=== PATIENT | female | born 1935 | race Caucasian/White ===

== ENCOUNTER 2024-08-02 10:47 | Observation (INO) ==
--- NOTE | 2024-08-02 11:21 | Emergency Department Note ---
HPI - URI/Sore Throat General Chief Complaint: Upper Respiratory Infection Stated Complaint: cough Source: patient Limitations: no limitations History of Present Illness HPI Narrative: This patient is 88-year-old white female that presents from Dr. Erickson Wolfe's office due to Cough that she states has been ongoing "for years" but has been worse over the past 2 weeks. She states she seen him approximately 2 weeks ago and was given some medicine but is unsure what it was but states that it is not helping with her symptoms. She states that she has continued to worsen and is unable to stop coughing pain Dr. Wolfe had called and stated that he would like to have the patient Worked up and examined And likely as needed if necessary for further evaluation. Exacerbating factors: Reports nothing Related Data Allergies Allergy/AdvReac Type Severity Reaction Status Date / Time levofloxacin (From Levaquin) Allergy Unknown Verified 08/02/24 11:02 Penicillins Allergy Unknown Verified 08/02/24 11:02 clarithromycin (From Biaxin) Allergy Verified 08/02/24 11:02 Review of Systems Status of ROS 10 or more systems reviewed and unremark able except as noted in history and below [facility] Medical History (Updated 08/02/24 @ 11:52 by Breanna Allred RN) History of esophageal dilatation History of intestine removal Frequent UTI Colon cancer PUD (peptic ulcer disease) Kidney disease Hypertension Whooping cough CVA (cerebral vascular accident) Surgical History (Updated 08/02/24 @ 11:52 by Breanna Allred RN) History of back surgery History of cholecystectomy Social History Smoking status: never smoker Exam Constitutional: normal general appearance, no apparent distress and average body habitus Vital Signs - 24 hr 08/02/24 10:55 08/02/24 11:41 08/02/24 13:00 Temperature 97.2 F L Pulse Rate 62 62 Respiratory Rate 18 17 Blood Pressure 139/64 124/63 Pulse Oximetry 95 99 98 Oxygen Delivery Me thod Room Air Room Air Eyes: PERRL and EOMs intact bilaterally Neck/C-Spine: visual inspection normal and trachea midline Chest: inspection of chest normal and palpation of chest normal Cardiovascular: normal heart rate noted and regular rhythm noted Gastrointestinal: abdomen normal to inspection, abdomen soft to palpation, nontender to palpation and nondistended Back/Pelvis: spine normal to inspection Extremities: normal to inspection, normal to palpation, no tenderness, full ROM, no joint enlargement and no deformity 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 and no movement abnormality noted Skin: skin color normal Course Vital Signs Vital signs: Vital Signs Temperature 97.2 F L 08/02/24 10:55 Pulse Rate 62 08/02/24 10:55 Respiratory Rate 18 08/02/24 10:55 Blood Pressure 139/64 08/02/24 10:55 Pulse Oximetry 95 08/02/24 10:55 Oxygen Delivery Method Room Air 08/02/24 10:55 Temperature 97.2 F L 08/02/24 10:55 Pulse Rate 62 08/02/24 13:00 Respiratory Rate 17 08/02/24 13:00 Blood Pressure 124/63 08/02/24 13:00 Pulse Oximetry 98 08/02/24 13:00 Oxygen Delivery Method Room Air 08/02/24 13:00 MDM - URI/Sore Throat MDM Narrative Medical Decision Making Narrative: Reviewed labs and studies spoke with the patient concerning admission for further evaluation and treatment the patient is agreeable with this.Spoke with Dr. Porter who agrees to admit the patient with gentle rehydration and to treat her hyperkalemia. Lab Data Attestation: I reviewed the patient's lab results. Labs: Lab Results 08/02/24 Range/Units 11:45 WBC 11.6 H (4.3-9.3) K/uL RBC 4.5 (4.00-5.50) M/uL Hgb 14.0 (12.5-15.8) gm/dL Hct 40.5 (35.9-46.7) % MCV 89.7 (81.0-93.7) fl MCH 31.1 (27.6-32.2) pg MCHC 34.6 (33.1-35.3) g/dl RDW 13.2 (11.4-14.2) % Plt Count 204 (152-353) K/uL MPV 8.7 (6.9-10.8) fl Gran % 75.5 H (47.8-71.3) % Lymph % (Auto) 15.2 L (20.0-43.0) % [place] % (Auto) 8.2 (3.6-9.8) % Eos % (Auto) 0.4 (0.4-2.8) % Baso % (Auto) 0.7 (0.1-0.85) Lymph # (Auto) 1.8 (1.1-3.1) [place] # (Auto) 0.9 L (1.1-3.1) Eos # (Auto) 0.0 (0.0-0.2) Baso # (Auto) 0.1 (0.0-0.1) Absolute Gran (auto) 8.7 H (2.3-6.0) Sodium 132 L (136-145) mmol/L Potassium 6.0 H (3.6-5.2) mmol/L Chloride 97.0 L (98-107) mmol/L Carbon Dioxide 24 (21-32) mmol/L Anion Gap 11.0 (4-14) mEq/L BUN 19 H (7-18) mg/dL Creatinine 1.5 H (0.6-1.3) mg/dL Estimated GFR 33.1 (>59.9) Glucose 92 (70-110) mg/dL Calcium 9.6 (8.5-10.1) mg/dL Total Bilirubin 0.87 (0.0-1.0) mg/dL AST 42 H (15-37) U/L ALT 23 L (30-65) U/L Alkaline Phosphatase 67 (50-136) U/L Troponin I High Sens 9.90 (4.0-60.4) ng/L B-Natriuretic Peptide 101.0 H (0-100) pg/mL Total Protein 7.4 (6.4-8.2) g/dL Albumin 3.4 (3.4-5.0) g/dL Imaging Data Attestation imaging: I personally reviewed and interpreted this imaging study as follows: ECG Data Attestation ECG: I personally reviewed and interpreted this ECG as follows: (/Sinus arrhythmia, LVH, borderline T abnormalities [address] elevation noted) ECG interpretation date: 08/02/24 ECG interpretation time: 11:27 Discharge Plan Discharge Patient Disposition: Admitted As Observation Condition: Stable Chief Complaint: Upper Respiratory Infection Clinical Impression: Hyperkalemia, Acute on chronic renal insufficiency, Hyponatremia, Cough Print Language: Prydeinig Referrals: Erickson Wolfe MD [Primary Care Provider] - Time of Disposition: 13:31
[2024-08-02] MEDS: IPRATROPIUM/ALBUTEROL SULFATE 3 ML AMPUL.NEB INH ONE (11:41)
[2024-08-02] MEDS: METHYLPREDNISOLONE SOD SUCC/PF 125 MG/2 ML VIAL INJ ONE (11:46)
[2024-08-02 11:54] LABS: Basophils #(Absolute) Auto 0.1 (0.0-0.1); Basophils%(Percent) Auto 0.7 (0.1-0.85); Eosinophils%(Percent) Auto 0.4 % (0.4-2.8); Granulocytes % - Auto 75.5 % (47.8-71.3); Granulocytes#(Absolute)- Auto 8.7 (2.3-6.0); Hematocrit 40.5 % (35.9-46.7); Mean Corpuscular Volume 89.7 fl (81.0-93.7); Monocytes #(Absolute)- Auto 0.9 (1.1-3.1); Monocytes %(Percent)- Auto 8.2 % (3.6-9.8); Platelet Count 204 K/uL (152-353); White Blood Count 11.6 K/uL (4.3-9.3)
[2024-08-02 13:25] LABS: Specific Gravity Urine 1.005 (1.001-1.035); Urine Appearance CLEAR (CLEAR); Urine Blood NEGATIVE (NEG - TRACE); Urine Color YELLOW (STRAW/YELL.); Urine Urobilinogen Normal (NORMAL)
[2024-08-02] MEDS ORDERED: 0.9 % SODIUM CHLORIDE 250 ML IV ONE (13:39)
[2024-08-02] MEDS: 0.9 % SODIUM CHLORIDE 1000 ML 1,000 ML IV ONE (13:45)
[2024-08-02] MEDS: 0.9 % SODIUM CHLORIDE 250 ML IV SCH (13:46)
[2024-08-02] MEDS ORDERED: SODIUM POLYSTYRENE SULFONATE 15 GM/60 ML ORAL.SUSP ONE (13:52)
[2024-08-02] MEDS: SODIUM POLYSTYRENE SULFONATE 15 GM/60 ML ORAL.SUSP PO ONE (13:53)
--- NOTE | 2024-08-02 16:37 | Internal Medicine H&P ---
Internal Medicine - H&P: HPI History of Present Illness Chief complaint: Hyperkalemia, Acute on chronic renal insufficiency Narrative: Patient to the ER with concerns about dehydration and lingering cough. Has had chronic cough for many months now. Reports it started after her second bout of whooping cough. Has been evaluated by pulmonology and was advised "she would always have a cough." 2 weeks ago went to her PCP due to sore throat. Was given a Z-Woody with no resolution. Lymphadenopathy resolved. She reports that she was having chronic posttussive emesis. Decreased her p.o. intake. On presentation to the ER she was found to be hyperkalemic with an SERGO. She is feeling little bit better after IV fluids. Cough still present. No emesis. Review of Systems Status of ROS 10 or more systems reviewed and unremark able except as noted in history and below [facility] Medical History (Updated 08/02/24 @ 17:33 by Raleigh Porter MD) History of esophageal dilatation History of intestine removal Frequent UTI Colon cancer PUD (peptic ulcer disease) Kidney disease Hypertension Whooping cough CVA (cerebral vascular accident) Surgical History (Updated 08/02/24 @ 11:52 by Breanna Allred RN) History of back surgery History of cholecystectomy Social History Smoking status: never smoker Problems where you live: no known problems Highest level of school completed/degree received: College Meds Home Medications and Allergies Home Medications Medication Instructions Recorded Confirmed Type diazepam 5 mg tablet 5 mg PO BEDTIME 08/02/24 08/02/24 History nebivolol 5 mg tablet 5 mg PO DAILY 08/02/24 08/02/24 History pantoprazole 40 mg tablet,delayed 40 mg PO BID 08/02/24 08/02/24 History release prednisone 5 mg tablet 5 mg PO DAILY 08/02/24 08/02/24 History spironolactone 50 mg tablet 50 mg PO DAILY 08/02/24 08/02/24 History Allergies Allergy/AdvReac Type Severity Reaction Status Date / Time levofloxacin (From Levaquin) Allergy Unknown Verified 08/02/24 11:02 Penicillins Allergy Unknown Verified 08/02/24 11:02 clarithromycin (From Biaxin) Allergy Verified 08/02/24 11:02 hydrochlorothiazide Allergy Verified 08/02/24 15:24 Exam Constitutional: normal general appearance, no apparent distress, average body habitus, no limitations and alert Vital Signs - 24 hr 08/02/24 10:55 08/02/24 11:41 08/02/24 13:00 Temperature 97.2 F L Pulse Rate 62 62 Pulse Rate [Right] Respiratory Rate 18 17 Blood Pressure 139/64 124/63 Blood Pressure [Ri ght Arm] Pulse Oximetry 95 99 98 Oxygen Delivery Me thod Room Air Room Air 08/02/24 13:30 08/02/24 14:19 08/02/24 14:19 Temperature 98.1 F Pulse Rate 68 Pulse Rate [Right] 63 63 Respiratory Rate 17 20 20 Blood Pressure 129/56 Blood Pressure [Ri ght Arm] 163/57 Pulse Oximetry 97 97 99 Oxygen Delivery Me thod Room Air Room Air Room Air 08/02/24 14:43 08/02/24 16:00 Temperature 98.1 F Pulse Rate 68 Pulse Rate [Right] 68 Respiratory Rate 20 Blood Pressure 129/56 Blood Pressure [Ri ght Arm] 168/67 Pulse Oximetry 97 Oxygen Delivery Me thod Room Air HENMT: normocephalic, head/scalp atraumatic, hearing grossly normal bilaterally and external ears normal Eyes: PERRL, EOMs intact bilaterally and conjunctivae normal Neck/C-Spine: visual inspection normal, trachea midline, cervical spine nontender, cervical full ROM noted, supple, no meningeal signs and thyroid normal Lymph: no lymphadenopathy noted Respiratory: breath sounds equal bilaterally, normal respiratory effort, clear to auscultation bilaterally and no wheezes Cardiovascular: normal heart rate noted and regular rhythm noted Gastrointestinal: abdomen soft to palpation, nontender to palpation, nondistended and normoactive bowel sounds Back/Pelvis: thoracic spine ROM normal and lumbar spine ROM normal 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, no movement abnormality noted, no focal motor deficit noted, speech normal, no fasciculations noted and GCS normal Psychiatry: mental status grossly normal, oriented x3, thought process normal, cooperative, affect normal, psychomotor activity normal and memory normal Internal Medicine - H&P: Reslt Labs Labs: CBC WBC 11.6 K/uL (4.3-9.3) H 08/02/24 11:45 RBC 4.5 M/uL (4.00-5.50) 08/02/24 11:45 Hgb 14.0 gm/dL (12.5-15.8) 08/02/24 11:45 Hct 40.5 % (35.9-46.7) 08/02/24 11:45 MCV 89.7 fl (81.0-93.7) 08/02/24 11:45 MCH 31.1 pg (27.6-32.2) 08/02/24 11:45 MCHC 34.6 g/dl (33.1-35.3) 08/02/24 11:45 RDW 13.2 % (11.4-14.2) 08/02/24 11:45 Plt Count 204 K/uL (152-353) 08/02/24 11:45 MPV 8.7 fl (6.9-10.8) 08/02/24 11:45 Gran % 75.5 % (47.8-71.3) H 08/02/24 11:45 Lymph % (Auto) 15.2 % (20.0-43.0) L 08/02/24 11:45 [place] % (Auto) 8.2 % (3.6-9.8) 08/02/24 11:45 Eos % (Auto) 0.4 % (0.4-2.8) 08/02/24 11:45 Baso % (Auto) 0.7 (0.1-0.85) 08/02/24 11:45 Lymph # (Auto) 1.8 (1.1-3.1) 08/02/24 11:45 [place] # (Auto) 0.9 (1.1-3.1) L 08/02/24 11:45 Eos # (Auto) 0.0 (0.0-0.2) 08/02/24 11:45 Baso # (Auto) 0.1 (0.0-0.1) 08/02/24 11:45 Absolute Gran (auto) 8.7 (2.3-6.0) H 08/02/24 11:45 BMP Sodium 132 mmol/L (136-145) L 08/02/24 11:45 Potassium 6.0 mmol/L (3.6-5.2) H 08/02/24 11:45 Chloride 97.0 mmol/L (98-107) L 08/02/24 11:45 Carbon Dioxide 24 mmol/L (21-32) 08/02/24 11:45 Anion Gap 11.0 mEq/L (4-14) 08/02/24 11:45 BUN 19 mg/dL (7-18) H 08/02/24 11:45 Creatinine 1.5 mg/dL (0.6-1.3) H 08/02/24 11:45 Estimated GFR 33.1 (>59.9) 08/02/24 11:45 Glucose 92 mg/dL (70-110) 08/02/24 11:45 Calcium 9.6 mg/dL (8.5-10.1) 08/02/24 11:45 Total Bilirubin 0.87 mg/dL (0.0-1.0) 08/02/24 11:45 AST 42 U/L (15-37) H 08/02/24 11:45 ALT 23 U/L (30-65) L 08/02/24 11:45 Alkaline Phosphatase 67 U/L (50-136) 08/02/24 11:45 Total Protein 7.4 g/dL (6.4-8.2) 08/02/24 11:45 Albumin 3.4 g/dL (3.4-5.0) 08/02/24 11:45 Cardiac Enzymes Troponin I High Sens 9.90 ng/L (4.0-60.4) 08/02/24 11:45 Liver Function Total Bilirubin 0.87 mg/dL (0.0-1.0) 08/02/24 11:45 AST 42 U/L (15-37) H 08/02/24 11:45 ALT 23 U/L (30-65) L 08/02/24 11:45 Alkaline Phosphatase 67 U/L (50-136) 08/02/24 11:45 Total Protein 7.4 g/dL (6.4-8.2) 08/02/24 11:45 Albumin 3.4 g/dL (3.4-5.0) 08/02/24 11:45 Urine Urine Color Yellow (STRAW/YELL.) 08/02/24 12:05 Urine Appearance Clear (CLEAR) 08/02/24 12:05 Ur Specific [place] 1.005 (1.001-1.035) 08/02/24 12:05 Urine Protein Negative (NEGATIVE) 08/02/24 12:05 Urine Glucose (UA) Normal (NORMAL) 08/02/24 12:05 Urine Ketones Negative (NEGATIVE) 08/02/24 12:05 Urine Occult Blood Negative (NEG - TRACE) 08/02/24 12:05 Urine Nitrite Negative (NEGATIVE) 08/02/24 12:05 Urine Bilirubin Negative (NEGATIVE) 08/02/24 12:05 Urine Urobilinogen Normal (NORMAL) 08/02/24 12:05 Ur Leukocyte Esterase Negative (NEGATIVE) 08/02/24 12:05 Assessment and Plan Assessment and Plan (1) SERGO (acute kidney injury): Code(s): N17.9 - Acute kidney failure, unspecified (2) Acute hyperkalemia: Code(s): E87.5 - Hyperkalemia (3) Chronic cough: Code(s): R05.3 - Chronic cough Plan Continue IV fluids. BMP reordered for this afternoon showing resolved hyperkalemia with stable SERGO. Patient reports Joaquín Valle and Patria have not helped her cough or emesis.
[2024-08-02 17:03] LABS: Potassium 4.7 mmol/L (3.6-5.2)
[2024-08-02] MEDS: diazePAM 5 MG TABLET PO SCH (20:05)
[2024-08-02] MEDS: PANTOPRAZOLE SODIUM 40 MG TABLET.DR PO SCH (20:05)
[2024-08-02] MEDS: METOPROLOL TARTRATE 25 MG TABLET PO SCH (20:06)
[2024-08-03] MEDS ORDERED: ACETAMINOPHEN 650 MG SUPP.RECT PR PRN (03:44)
--- NOTE | 2024-08-03 05:06 | Event Note ---
Event Note Event Note: 0343 - STEPHANIE Huang called and stated pt is c/o of UREÑA. Order given for Tylenol 650mg PO q 4hrs PRN given.
[2024-08-03 07:04] LABS: Basophils #(Absolute) Auto 0.1 (0.0-0.1); Basophils%(Percent) Auto 0.9 (0.1-0.85); Eosinophils#(Absolute)Auto 0.1 (0.0-0.2); Eosinophils%(Percent) Auto 1.2 % (0.4-2.8); Granulocytes % - Auto 59.6 % (47.8-71.3); Hematocrit 34.9 % (35.9-46.7); Mean Corpuscular Volume 91.9 fl (81.0-93.7); Monocytes #(Absolute)- Auto 0.9 (1.1-3.1); Monocytes %(Percent)- Auto 13.6 % (3.6-9.8); Platelet Count 177 K/uL (152-353); White Blood Count 6.7 K/uL (4.3-9.3)
[2024-08-03 07:15] LABS: Potassium 3.7 mmol/L (3.6-5.2)
--- NOTE | 2024-08-03 07:21 | Discharge Summary ---
DS: Providers Provider Date of admission: 08/02/24 13:37 Primary care physician: Erickson Wolfe MD Admitting clinician: Raleigh Porter Attending physician on admission: Raleigh Porter Attending physician on discharge: Raleigh Porter Discharging clinician: Raleigh Porter Anticipated date of discharge: 08/03/24 DS: Diagnosis Discharge Diagnosis (1) SERGO (acute kidney injury): Assessment and plan: resolved (2) Acute hyperkalemia: Assessment and plan: resolved (3) Chronic cough: Assessment and plan: stable Plan Discharge home for f/u with PCP. DS: Summary Hospital Course Hospital Course: Pt admitted due to dehydration with SERGO and hyperkalemia. She responded well to fluids and was able to tolerate PO fluids and regular diet. Potassium improved quickly and SCr resolved overnight. Pt discharged home in improved, stable condition with no Status at Discharge Functional status at discharge: independent ambulation Overall status at discharge: patient is back to baseline Time Spent with Patient Time attestation: Total time spent providing and/or coordinating discharge services: Time spent: less than 30 minutes Exam Constitutional: normal general appearance, no apparent distress, average body habitus, no limitations and alert Vital Signs - 24 hr 08/02/24 10:55 08/02/24 11:41 08/02/24 13:00 Temperature 97.2 F L Pulse Rate 62 62 Pulse Rate [Right] Respiratory Rate 18 17 Blood Pressure 139/64 124/63 Blood Pressure [Ri ght Arm] Pulse Oximetry 95 99 98 Oxygen Delivery Me thod Room Air Room Air 08/02/24 13:30 08/02/24 14:19 08/02/24 14:19 Temperature 98.1 F Pulse Rate 68 Pulse Rate [Right] 63 63 Respiratory Rate 17 20 20 Blood Pressure 129/56 Blood Pressure [Ri ght Arm] 163/57 Pulse Oximetry 97 97 99 Oxygen Delivery Me thod Room Air Room Air Room Air 08/02/24 14:43 08/02/24 16:00 08/02/24 20:00 Temperature 98.1 F 98.5 F Pulse Rate 68 Pulse Rate [Right] 68 51 L Respiratory Rate 20 16 Blood Pressure 129/56 Blood Pressure [Ri ght Arm] 168/67 122/55 Pulse Oximetry 97 97 Oxygen Delivery Me thod Room Air Room Air 08/02/24 20:06 08/02/24 23:38 08/03/24 03:49 Temperature 97.7 F 98.4 F Pulse Rate 51 L Pulse Rate [Right] 67 53 L Respiratory Rate 18 19 Blood Pressure 122/55 Blood Pressure [Ri ght Arm] 127/85 124/47 Pulse Oximetry 97 98 Oxygen Delivery Me thod Room Air Room Air HENMT: normocephalic, head/scalp atraumatic, hearing grossly normal bilaterally and external ears normal Eyes: PERRL, EOMs intact bilaterally and conjunctivae normal Neck/C-Spine: visual inspection normal and trachea midline Respiratory: breath sounds equal bilaterally, normal respiratory effort, clear to auscultation bilaterally and no wheezes Cardiovascular: normal heart rate noted, regular rhythm noted and no murmur Gastrointestinal: abdomen soft to palpation, nontender to palpation, nondistended and normoactive bowel sounds Back/Pelvis: thoracic spine ROM normal and lumbar spine ROM normal Extremities: normal to inspection and normal to palpation 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, no movement abnormality noted, no focal motor deficit noted, gait normal, speech normal, coordination normal, no fasciculations noted and GCS normal Psychiatry: mental status grossly normal, oriented x3, thought process normal, cooperative, affect normal, psychomotor activity normal and memory normal DS: Data Data Completed and Pending Labs on day of discharge: Labs from last 24 hours 08/03/24 08/02/24 08/02/24 06:40 16:30 12:05 WBC 6.7 RBC 3.8 L Hgb 11.9 L Hct 34.9 L MCV 91.9 MCH 31.4 MCHC 34.2 RDW 13.2 Plt Count 177 MPV 8.8 Gran % 59.6 Lymph % (Auto) 24.7 [place] % (Auto) 13.6 H Eos % (Auto) 1.2 Baso % (Auto) 0.9 H Lymph # (Auto) 1.6 [place] # (Auto) 0.9 L Eos # (Auto) 0.1 Baso # (Auto) 0.1 Absolute Gran (auto) 4.0 Sodium 139 138 Potassium 3.7 4.7 Chloride 104.0 101.0 Carbon Dioxide 27 25 Anion Gap 8.0 12.0 BUN 14 17 Creatinine 1.2 1.5 H Estimated GFR 43.3 33.1 Glucose 79 106 Calcium 8.3 L 9.1 Phosphorus 2.8 Magnesium 1.7 L Total Bilirubin 0.63 AST 16 ALT 14 L Alkaline Phosphatase 51 Troponin I High Sens B-Natriuretic Peptide Total Protein 5.8 L Albumin 2.7 L Urine Color Yellow Urine Appearance Clear Ur Specific [place] 1.005 Urine Protein Negative Urine Glucose (UA) Normal Urine Ketones Negative Urine Occult Blood Negative Urine Nitrite Negative Urine Bilirubin Negative Urine Urobilinogen Normal Ur Leukocyte Esterase Negative Fluid pH 7.0 08/02/24 11:45 WBC 11.6 H RBC 4.5 Hgb 14.0 Hct 40.5 MCV 89.7 MCH 31.1 MCHC 34.6 RDW 13.2 Plt Count 204 MPV 8.7 Gran % 75.5 H Lymph % (Auto) 15.2 L [place] % (Auto) 8.2 Eos % (Auto) 0.4 Baso % (Auto) 0.7 Lymph # (Auto) 1.8 [place] # (Auto) 0.9 L Eos # (Auto) 0.0 Baso # (Auto) 0.1 Absolute Gran (auto) 8.7 H Sodium 132 L Potassium 6.0 H Chloride 97.0 L Carbon Dioxide 24 Anion Gap 11.0 BUN 19 H Creatinine 1.5 H Estimated GFR 33.1 Glucose 92 Calcium 9.6 Phosphorus Magnesium Total Bilirubin 0.87 AST 42 H ALT 23 L Alkaline Phosphatase 67 Troponin I High Sens 9.90 B-Natriuretic Peptide 101.0 H Total Protein 7.4 Albumin 3.4 Urine Color Urine Appearance Ur Specific [place] Urine Protein Urine Glucose (UA) Urine Ketones Urine Occult Blood Urine Nitrite Urine Bilirubin Urine Urobilinogen Ur Leukocyte Esterase Fluid pH Discharge Plan Discharge Disposition: Home, Self-Care Condition: Stable Discharge Medications: Continued prednisone 5 mg tablet 5 mg PO DAILY Patient Comments: TAKE ONE TABLET BY MOUTH ONCE DAILY WITH FOOD pantoprazole 40 mg tablet,delayed release (DR/EC) 40 mg PO BID Patient Comments: TAKE ONE TABLET BY MOUTH TWICE DAILY spironolactone 50 mg tablet 50 mg PO DAILY Patient Comments: TAKE ONE TABLET BY MOUTH EVERY DAY diazepam 5 mg tablet 5 mg PO BEDTIME Patient Comments: TAKE ONE TABLET BY MOUTH AT BEDTIME nebivolol 5 mg tablet 5 mg PO DAILY Patient Comments: TAKE ONE TABLET BY MOUTH ONCE DAILY Discharge Orders: Discharge Order (Routine); Ordered 08/03/24 Ordered By: Raleigh Porter Activity: resume usual activities as tolerated Diet: advance to your usual diet Interventions: MED/SURG & ICU Observation Charge Sheet Last Done: 08/03/24 06:03 Forms: Portal/Health Info Access Inst Follow-Ups: Erickson Wolfe MD [Primary Care Provider] -
[2024-08-03 08:17] VITALS: BP 117/46; PULSE 54; RESP 16; TEMP 98
== END 2024-08-03 08:51 | disposition home or self-care (01) ==
LOC: ED 10:47 → MS 10:47
PROVIDERS: ADMIT Family Medicine; ATTEND Family Medicine
DX: R05.3 Chronic cough; N17.8 Other acute kidney failure; N18.9 Chronic kidney disease, unspecified; E87.5 Hyperkalemia; E87.1 Hypo-osmolality and hyponatremia; R51.9 Headache, unspecified